=== PATIENT | male | born 1990 | race African-American/Black ===

== ENCOUNTER 2016-11-18 15:01 | Emergency (ER) | payer SELFPAY ==
[~2016-11-18] VITALS: Ht 182.9 cm; Wt 81.5 kg
[~2016-11-18 15:01] MED LIST: MELO15TA2 PO; Z.0.NO CURRENT MEDS
[2016-11-18 15:04] VITALS: BP 155/99; PULSE 99; RESP 15; TEMP 98.1; O2SAT 97
--- NOTE | 2016-11-18 15:27 | PD ---
Physical Exam Date Seen by Provider: Nov 18, 2016 Time Seen by Provider: 15:23 Narrative Patient seen in triage with reports of intermittent chest pain and lightheadedness for the past couple of days. Patient states history of similar symptoms in the past, but never followed up on. Patient denies syncope, nausea , vomitting or fever. No cough. EKG Ordered. Vital Signs Stable. Patient awaiting bed placement. Data Data Last Documented VS Vital Signs Date Time Temp Pulse Resp B/P Pulse Ox O2 Delivery O2 Flow Rate FiO2 11/18/16 15:04 98.1 99 15 155/99 97 Orders Electrocardiogram (11/18/16 15:20) [facility] Medical Record Reviewed: Yes Supervised Visit with JUNIE: Yes Condition: Stable Shakeel Jj Nov 18, 2016 15:27
[2016-11-18 17:55] VITALS: RESP 17; O2SAT 99
[2016-11-18 17:59] VITALS: BP 152/95; PULSE 88; RESP 17; TEMP 97.8; O2SAT 99
[2016-11-18] MEDS ORDERED: KETOROLAC TROMETHAMINE 30 MG/ML (IVP) VIAL IV PUSH ONE (18:30)
[2016-11-18] MEDS ORDERED: SODIUM CHLORIDE 0.9% FLUSH 10 ML FLUSH IVF PRN (18:30)
[2016-11-18] MEDS ORDERED: SODIUM CHLOR 0.9% 1000 ML INJ 1,000 ML IV ONE (18:30)
--- NOTE | 2016-11-18 18:37 | PD ---
HPI Chief Complaint: Pain: Acute or Chronic Time Seen by Provider: 18:18 Travel History International Travel<30 days: No Contact w/Intl Traveler<30days: No Traveled to known affect area: No History of Present Illness HPI Patient is a 26-year-old male who presents to emergency room with complaint of chest pain. Patient reports that he has been having intermittent chest pain that is located his left chest. Patient reports a chest pain to suggest a sharp and stabbing sensation to his chest, nonradiating in nature. Patient reports that when he does have symptoms, he feels short of breath with nausea. Denies emesis. Patient denies diaphoresis with symptoms. Patient reports that when he has this chest pain, and last for a few minutes at a time and resolves on its own. Patient reports that he is workup in the past by his primary care physician a few years ago for these symptoms, reports that he moved to [place] never follow-up with his chest pain. Patient denies history of coronary disease , hypertension or hyperlipidemia. Patient does smoke 1 cigarette per day. Patient with no family history of coronary disease or early [place]. Denies no drug history. PFSH Past Medical History Medical History: Denies Significant Hx Diminished Hearing: No Tetanus Vaccination: > 5 Years Influenza Vaccination: No Past Surgical History Surgical History: No Previous Surgery Social History Alcohol Use: Yes (RARE) Tobacco Use: Yes (2 CIGARRETE PER DAY) Substance Use: No Allergies-Medications (Allergen,Severity, Reaction): Coded Allergies: No Known Allergies (Unverified , 11/18/16) Reported Meds & Prescriptions Reported Meds & Active Scripts Active No Active Prescriptions or Reported Medications Review of Systems General / Constitutional: No: Fever Eyes: No: Visual changes HENT: No: Headaches Cardiovascular: Positive: Chest Pain or Discomfort Respiratory: Positive: Shortness of Breath Gastrointestinal: No: Abdominal Pain Genitourinary: No: Dysuria Musculoskeletal: No: Pain Skin: No Rash Neurologic: No: Weakness Psychiatric: No: Depression Endocrine: No: Polydipsia Hematologic/Lymphatic: No: Easy Bruising Physical Exam Narrative GENERAL: No acute distress, nontoxic SKIN: Focused skin assessment warm/dry. HEAD: Atraumatic. Normocephalic. EYES: Pupils equal and round. No scleral icterus. No injection or drainage. ENT: No nasal bleeding or discharge. Mucous membranes pink and moist. NECK: Trachea midline. No JVD. CARDIOVASCULAR: Regular rate and rhythm. No murmur appreciated. RESPIRATORY: No accessory muscle use. Clear to auscultation. Breath sounds equal bilaterally. GASTROINTESTINAL: Abdomen soft, non-tender, nondistended. Hepatic and splenic margins not palpable. MUSCULOSKELETAL: No obvious deformities. No clubbing. No cyanosis. No edema. NEUROLOGICAL: Awake and alert. No obvious cranial nerve deficits. Motor grossly within normal limits. Normal speech. PSYCHIATRIC: Appropriate mood and affect; insight and judgment normal. Data Data Last Documented VS Vital Signs Date Time Temp Pulse Resp B/P Pulse Ox O2 Delivery O2 Flow Rate FiO2 11/18/16 17:59 97.8 88 17 152/95 99 Room Air Orders Electrocardiogram (11/18/16 15:20) Ckmb (Isoenzyme) Profile (11/18/16 18:29) Complete Blood Count With Diff (11/18/16 18:29) Comprehensive Metabolic Panel (11/18/16 18:29) D-Dimer (11/18/16 18:29) Prothrombin Time / Inr (Pt) (11/18/16 18:29) Act Partial Throm Time (Ptt) (11/18/16 18:29) Troponin I (11/18/16 18:29) Lipase (11/18/16 18:29) Chest, Single Ap (11/18/16 18:29) Ecg Monitoring (11/18/16 18:29) Iv Access Insert/Monitor (11/18/16 18:29) Oximetry (11/18/16 18:29) Sodium Chloride 0.9% Flush (Ns Flush) (11/18/16 18:30) Ns (Bolus) Inj (11/18/16 18:30) Ketorolac Inj (Toradol Inj) (11/18/16 18:30) MDM Medical Decision Making Medical Screen Exam Complete: Yes Emergency Medical Condition: Yes Interpretation(s) EKG at 1526: Normal sinus rhythm at 91 beats for minute, QT/QTc 325/374, no acute st or t wave changes Vital Signs Date Time Temp Pulse Resp B/P Pulse Ox O2 Delivery O2 Flow Rate FiO2 11/18/16 17:59 97.8 88 17 152/95 99 Room Air 11/18/16 15:04 98.1 99 15 155/99 97 Differential Diagnosis ACS, arrhythmia, PE, pneumothorax, electrolyte abnormality Narrative Course Patient is a 26-year-old male who presents emergency room with complaints of atypical chest pain. Patient reports that he has had sharp stabbing pains to his chest which have been intermittent in nature for the past few weeks. Patient was concerned as he has had more frequent episodes. When he does have these symptoms, symptoms feel like a sharp stabbing sensation, nonradiating in nature. Patient reports that he put his hand on his chest and holds a little pressure, he has resolution of symptoms. EKG obtained, patient with normal sinus rhythm at 91BMP , QT/QTc 325/74, no acute ST or T-wave changes. Patient was placed on a monitoring analyst. Labs as well as x-ray chest ordered. D-dimer ordered to rule out PE as patient did recently travel to [place] by car 2-3 weeks ago. 1 set of cardiac enzymes ordered to rule out infectious etiology of chest pain including but not limited to pericarditis or endocarditis. It was not ordered to rule out ACS. A dose of Toradol was ordered for patient. Scripts No Active Prescriptions or Reported Meds Condition: Rosalie Fung DO Nov 18, 2016 18:37
[2016-11-18 19:05] LABS: AUTOMATED NEUTROPHIL # 7.7 TH/MM3 (1.8-7.7); BASOPHIL % 0.3 % (0.0-2.0); EOSINOPHIL # 0.4 TH/MM3 (0-0.4); EOSINOPHIL % 3.8 % (0.0-4.0); HEMATOCRIT 43.5 % (39.0-51.0); HEMO FLAGS DIFF FINAL; LYMPH % 12.5 % (9.0-44.0); LYMPHOCYTE # 1.3 TH/MM3 (1.0-4.8); MEAN CELL VOLUME 87.8 FL (80.0-100.0); MEAN CORPUSCULAR HEMOGLOBIN 28.9 PG (27.0-34.0); MEAN CORPUSCULAR HGB CONC 32.9 % (32.0-36.0); MONO % 7.8 % (0.0-8.0); NEUT % 75.6 % (16.0-70.0); PLATELET COUNT 184 TH/MM3 (150-450); RED BLOOD COUNT 4.96 MIL/MM3 (4.50-5.90); RED CELL DISTRIBUTION WIDTH 12.5 % (11.6-17.2); WHITE BLOOD COUNT 10.2 TH/MM3 (4.0-11.0)
--- NOTE | 2016-11-18 19:08 | RADRPT ---
EXAM DATE/TIME: 11/18/2016 18:41 [facility] COMPARISON: No previous studies available for comparison. INDICATIONS : Chest pain MEDICAL HISTORY : None. SURGICAL HISTORY : None. ENCOUNTER: Initial ACUITY: 1 day PAIN SCORE: 4/10 LOCATION: chest FINDINGS: A single view of the chest demonstrates the lungs to be symmetrically aerated without evidence of mas s, infiltrate or effusion. The cardiomediastinal contours are unremarkable. Osseous structures are intact. CONCLUSION: No acute disease. Nabeel Okeefe MD on November 18, 2016 at 19:06 Board Certified Radiologist. This report was verified electronically.
[2016-11-18 19:19] LABS: ANION GAP 6 MEQ/L (5-15); AST (GOT) 38 U/L (15-37); BICARBONATE 30.4 MEQ/L (21.0-32.0); BLOOD UREA NITROGEN 8 MG/DL (7-18); CHLORIDE 102 MEQ/L (98-107); GLOMERULAR FILTRATION RATE 77 ML/MIN (>89); POTASSIUM 4.2 MEQ/L (3.5-5.1); SODIUM (NA) 138 MEQ/L (136-145)
[2016-11-18 19:24] LABS: ALKALINE PHOSPHATASE 56 U/L (45-117); ALT (GPT) 81 U/L (12-78); CREATINE KINASE 162 U/L (39-308); TOTAL BILIRUBIN ADULT 0.6 MG/DL (0.2-1.0)
[2016-11-18 19:36] LABS: CKMB 0.5 NG/ML (0.5-3.6)
--- NOTE | 2016-11-18 20:53 | PD ---
Physical Exam Narrative Received sign out from previous team to follow up labs and reevaluate. 26yo M with no PMH here with atypical chest pain for 1-1.5 weeks. Pt is a cig smoker. No other risk factors for cardiac disease. Labs reviewed, no leukocytosis. Creatinine mildly elevated. Troponin negative. Lipase and LFTs elevated. However, pt has no abdominal pain. CXR negative. D-dimer negative. Pt reevaluated at bedside and chest pain has resolved. Return precautions given. Data Data Last Documented VS Vital Signs Date Time Temp Pulse Resp B/P Pulse Ox O2 Delivery O2 Flow Rate FiO2 11/18/16 22:10 83 12 141/96 96 Room Air 11/18/16 17:59 97.8 Orders Electrocardiogram (11/18/16 15:20) Ckmb (Isoenzyme) Profile (11/18/16 18:29) Complete Blood Count With Diff (11/18/16 18:29) Comprehensive Metabolic Panel (11/18/16 18:29) D-Dimer (11/18/16 18:29) Prothrombin Time / Inr (Pt) (11/18/16 18:29) Act Partial Throm Time (Ptt) (11/18/16 18:29) Troponin I (11/18/16 18:29) Lipase (11/18/16 18:29) Chest, Single Ap (11/18/16 18:29) Ecg Monitoring (11/18/16 18:29) Iv Access Insert/Monitor (11/18/16 18:29) Oximetry (11/18/16 18:29) Sodium Chloride 0.9% Flush (Ns Flush) (11/18/16 18:30) Sodium Chlor 0.9% 1000 Ml Inj (Ns 1000 M (11/18/16 18:30) Ketorolac Inj (Toradol Inj) (11/18/16 18:30) CKMB (11/18/16 18:35) CKMB% (11/18/16 18:35) Labs Laboratory Tests Test 11/18/16 11/18/16 18:35 20:52 White Blood Count 10.2 TH/MM3 Red Blood Count 4.96 MIL/MM3 Hemoglobin 14.3 GM/DL Hematocrit 43.5 % Mean Corpuscular Volume 87.8 FL Mean Corpuscular Hemoglobin 28.9 PG Mean Corpuscular Hemoglobin 32.9 % Concent Red Cell Distribution Width 12.5 % Platelet Count 184 TH/MM3 Mean Platelet Volume 8.1 FL Neutrophils (%) (Auto) 75.6 % Lymphocytes (%) (Auto) 12.5 % Monocytes (%) (Auto) 7.8 % Eosinophils (%) (Auto) 3.8 % Basophils (%) (Auto) 0.3 % Neutrophils # (Auto) 7.7 TH/MM3 Lymphocytes # (Auto) 1.3 TH/MM3 Monocytes # (Auto) 0.8 TH/MM3 Eosinophils # (Auto) 0.4 TH/MM3 Basophils # (Auto) 0.0 TH/MM3 CBC Comment DIFF FINAL Differential Comment Sodium Level 138 MEQ/L Potassium Level 4.2 MEQ/L Chloride Level 102 MEQ/L Carbon Dioxide Level 30.4 MEQ/L Anion Gap 6 MEQ/L Blood Urea Nitrogen 8 MG/DL Creatinine 1.34 MG/DL Estimat Glomerular Filtration 77 ML/MIN Rate Random Glucose 79 MG/DL Calcium Level 8.9 MG/DL Total Bilirubin 0.6 MG/DL Aspartate Amino Transf 38 U/L (AST/SGOT) Alanine Aminotransferase 81 U/L (ALT/SGPT) Alkaline Phosphatase 56 U/L Total Creatine Kinase 162 U/L Creatine Kinase MB 0.5 NG/ML Troponin I LESS THAN 0.02 NG/ML Total Protein 7.6 GM/DL Albumin 3.9 GM/DL Lipase 483 U/L Prothrombin Time 10.7 SEC Prothromb Time International 1.0 RATIO Ratio Activated Partial 30.1 SEC Thromboplast Time D-Dimer Quantitative (PE/DVT) 0.26 MG/L FEU MDM Supervised Visit with JUNIE: No Diagnosis Primary Impression: Atypical chest pain Patient Instructions: General Instructions Departure Forms: Tests/Procedures Additional Instruction: Please follow up with your PMD in 3-7 days. Return to the ED if symptoms worsen. Med/Other Pt SpecificInfo: Prescription(s) given Scripts Ibuprofen 600 Mg [id number] Mg PO Q8HR PRN (PAIN) #20 TAB Ref 0 Prov:Brooke Parisi 11/19/16 Disposition: 01 DISCHARGE HOME Condition: Stable Brooke Parisi DO Nov 18, 2016 20:53
[2016-11-18 22:10] VITALS: BP 141/96; PULSE 83; RESP 12; O2SAT 96
[2016-11-18 22:21] LABS: APTT (PATIENT) 30.1 SEC (24.3-30.1); PROTHROMBIN TIME - PATIENT 10.7 SEC (9.8-11.6)
[2016-11-19] MEDS ORDERED: IBUP-232 PO (00:28)
--- NOTE | 2016-11-19 16:23 | EKG ---
Date Performed: 11/18/2016 Time Performed: 15:26:06 PTAGE: 26 years EKG: Sinus rhythm NORMAL ECG NO PREVIOUS TRACING DOCTOR: Don Junior Interpretating Date/Time 11/19/2016 16:21:28
== END 2016-11-19 00:46 | disposition home or self-care (01) ==
LOC: NEPC 15:01
DX: R07.89 Other chest pain (principal); Z72.0 Tobacco use
CPT/HCPCS: 71010; 80053; 82550; 82552; 83690; 84484; 85025; 85379; 85610; 85730; 93005; 96374; 99285; J1885; J7030